=== PATIENT | male | born 1955 | race African-American/Black ===

== ENCOUNTER 2023-04-10 10:27 | Emergency (ER) | payer OTHER ==
[2023-04-10 10:54] LABS: Absolute Lymphocytes (CBC) 3.5 K/uL (0.7-4.9); Hematocrit 38.8 % (39.6-49.0); Lymphocytes % 38.1 % (15.3-44.8); MCV 76.2 fL (80-100); MPV 7.9 fL (7.6-11.3); Platelets 379 thou/uL (152-406); RBC Red Blood Cell Count 5.09 M/uL (4.33-5.43)
[2023-04-10] MEDS ORDERED: ONDANSETRON 4 MG/2 ML VIAL ONE (11:02)
[2023-04-10] MEDS ORDERED: FAMOTIDINE 20 MG/2 ML VIAL IV ONE (11:02)
[2023-04-10] MEDS ORDERED: NA CHLORIDE 0.9% 1,000 ML ONE (11:02)
[2023-04-10 11:13] LABS: Albumin 3.7 g/dL (3.4-5.0); Bilirubin Total 0.5 mg/dL (0.2-1.0); Potassium 3.8 mEq/L (3.5-5.1); Protein, Total 8.3 g/dL (6.4-8.2); Troponin High Sensitivity 3.1 pg/mL (<58.9)
--- NOTE | 2023-04-10 12:06 | RAD REPORT ---
EXAM DESCRIPTION: CT - Abdomen Pelvis W Contrast - 04/10/2023 11:54 am CLINICAL HISTORY: Abdominal pain COMPARISON: none. TECHNIQUE: Computed axial tomography of the abdomen pelvis was obtained. 100 cc Isovue-300 was admin istered intravenously. Oral contrast was not requested which limits evaluation of bowel and appendix All CT scans are performed using dose optimization technique as appropriate and may include automated exposure control or mA/KV adjustment according to patient size. FINDINGS: The liver, spleen, pancreas, adrenal and kidneys appear unremarkable. There is no evidence of diverticulitis. Fluid within nondilated large and small bowel. Prostate gland mildly enlarged IMPRESSION: Fluid within nondilated large and small bowel may indicate enteritis
[2023-04-10] MEDS ORDERED: CIPROFLOXACIN 400mg IV 400 MG/200 ML BAG IV ONE (12:35)
[2023-04-10] MEDS ORDERED: METRONIDAZOLE 500mg IVPB 500 MG/100 ML BAG IV ONE (12:36)
--- NOTE | 2023-04-10 12:37 | EDPHYS ---
Physician Documentation [facility] Name: Gary Ramirez Age: 68 yrs Sex: Male : 1955 Arrival Date: 04/10/2023 Time: 10:27 Bed 10 Private MD: ED Physician Maggy Cardenas HPI: 04/10 10:37 This 68 yrs old Black Male presents to ER via EMS with complaints of Nausea/Vomiting. sp3 10:37 68-year-old male with history of hypertension, hep C, hyperlipidemia, hepatic disease sp3 presents from the local custodial via EMS for chief complaint epigastric pain coupled with nausea and vomiting. Patient states that symptoms have been going on for the last 2 to 3 days and EMS reports that patient had low blood pressure with systolic in the upper 80s at the present. No reports of tachycardia noted. Patient denies any blood or mucus in his emesis and denies any fever, upper respiratory symptoms, shortness of breath, chest pain, lower abdominal pain, diarrhea, syncope, near syncope, or any other signs or symptoms on ROS at this time.. Historical: - Allergies: 10:30 Fish Containing Products; kc6 - PMHx: 10:30 Hypertensive disorder; hepatitis c; Anemia; hyperlipidemia; hepatic disease; kc6 - PSHx: 10:30 None; kc6 - Immunization history:: Adult Immunizations up to date. - Social history:: Smoking status: Patient denies any tobacco usage or history of. ROS: 10:38 Constitutional: Negative for fever, chills, and weight loss, Eyes: Negative for injury, sp3 pain, redness, and discharge, ENT: Negative for injury, pain, and discharge, Neck: Negative for injury, pain, and swelling, Cardiovascular: Negative for chest pain, palpitations, and edema, Respiratory: Negative for shortness of breath, cough, wheezing, and pleuritic chest pain, Back: Negative for injury and pain, MS/Extremity: Negative for injury and deformity, Skin: Negative for injury, rash, and discoloration, Neuro: Negative for headache, weakness, numbness, tingling, and seizure, Psych: Negative for depression, anxiety, suicide ideation, homicidal ideation, and hallucinations, Allergy/Immunology: Negative for hives, rash, and allergies, Endocrine: Negative for neck swelling, polydipsia, polyuria, polyphagia, and marked weight changes, Hematologic/Lymphatic: Negative for swollen nodes, abnormal bleeding, and unusual bruising, 10:38 All other systems are negative, Exam: 10:38 Constitutional: This is a well developed, well nourished patient who is awake, alert, sp3 and in no acute distress. Head/Face: Normocephalic, atraumatic. Eyes: Pupils equal round and reactive to light, extra-ocular motions intact. Lids and lashes normal. Conjunctiva and sclera are non-icteric and not injected. Cornea within normal limits. Periorbital areas with no swelling, redness, or edema. ENT: Nares patent. No nasal discharge, no septal abnormalities noted. External auditory canals are clear. Oropharynx with no redness, swelling, or masses, exudates, or evidence of obstruction, uvula midline. Mucous membranes moist. Neck: Trachea midline, no thyromegaly or masses palpated, and no cervical lymphadenopathy. Supple, full range of motion without nuchal rigidity, or vertebral point tenderness. No Meningismus. Chest/axilla: Normal chest wall appearance and motion. Nontender with no deformity. No lesions are appreciated. Cardiovascular: Regular rate and rhythm with a normal S1 and S2. No gallops, murmurs, or rubs. Normal PMI, no JVD. No pulse deficits. Respiratory: Lungs have equal breath sounds bilaterally, clear to auscultation and percussion. No rales, rhonchi or wheezes noted. No increased work of breathing, no retractions or nasal flaring. Back: No spinal tenderness. No costovertebral tenderness. Full range of motion. Skin: Warm, dry with normal turgor. Normal color with no rashes, no lesions, and no evidence of cellulitis. MS/ Extremity: Pulses equal, no cyanosis. Neurovascular intact. Full, normal range of motion. Neuro: Awake and alert, GCS 15, oriented to person, place, time, and situation. Cranial nerves II-XII grossly intact. Motor strength 5/5 in all extremities. Sensory grossly intact. Cerebellar exam normal. Normal gait. Psych: Awake, alert, with orientation to person, place and time. Behavior, mood, and affect are within normal limits. 10:38 Abdomen/GI: Mild epigastric tenderness noted without peritoneal signs, rebound or guarding. Nonsurgical abdomen noted., 11:03 ECG was reviewed by the Attending Physician. EKG demonstrates normal sinus rhythm at 60 sp3 bpm with a first-degree AV block with a WI interval of 202 ms normal axis, normal QRS, high voltage nonspecific diffuse ST/T changes without evidence of acute ischemia. Vital Signs: 10:28 BP 108 / 78; Pulse 61; Resp 16 S; Temp 98.4(O); Pulse Ox 99% on R/A; Weight 58.51 kg kc6 (R); Height 6 ft. 1 in. (R); 12:12 BP 100 / 70; Pulse 58; Resp 16 S; Pulse Ox 100% on R/A; kc6 13:30 BP 118 / 75; Pulse 60; Resp 17; Pulse Ox 100% on R/A; me1 10:28 Body Mass Index 17.02 (58.51 kg, 185.42 cm) kc6 MDM: 10:33 Patient medically screened. sp3 10:39 Data reviewed: vital signs, nurses notes, EMS record, lab test result(s), radiologic sp3 studies. ED course: 68-year-old male with PMH above now presents with epigastric pain, vomiting and nausea. Differential diagnosis includes gastritis, biliary pathology, pancreatitis, among others. Low suspicion for acute coronary syndrome, pulmonary Balmorhea, aortic pathology including dissection and aneurysm. Will obtain CT scan of the abdomen and pelvis, laboratory values, EKG, and administer Zofran and IV fluids as needed.. 12:35 ED course: CT scan demonstrates infectious etiology without any acute surgical sp3 pathology. Patient is improved with medications given. We will treat with Cipro and Flagyl IV 1 dose prior to discharge and discharge patient home on oral meds.. 04/10 10:34 Order name: CBC with Diff; Complete Time: 12:12 sp3 04/10 10:34 Order name: CMP; Complete Time: 12:12 sp3 04/10 10:34 Order name: Lipase; Complete Time: 12:12 sp3 04/10 10:34 Order name: Troponin High Sensitivity; Complete Time: 12:12 sp3 04/10 10:34 Order name: CT Abd/Pelvis - IV Contrast Only; Complete Time: 12:12 sp3 04/10 10:34 Order name: EKG; Complete Time: 10:34 sp3 04/10 10:34 Order name: IV Saline Lock; Complete Time: 10:45 sp3 04/10 10:34 Order name: Labs collected and sent; Complete Time: 10:45 sp3 04/10 10:34 Order name: EKG - Nurse/Tech; Complete Time: 10:58 sp3 Administered Medications: 10:58 Drug: NS 0.9% IV 1000 ml IV at 1 bolus Per protocol; 1000 mL bolus Route: IV; Rate: 1 kc6 bolus; Site: right forearm; 13:19 Follow up: IV Status: Completed infusion me1 10:58 Drug: Famotidine IVP 20 mg IVP once; dilute with 10 mL 0.9% NaCl; give over 2 minutes kc6 Route: IVP; Site: right forearm; 13:19 Follow up: Response: No adverse reaction; Pain is decreased me1 10:58 Drug: Ondansetron IVP 4 mg IVP once; over 2 minutes Route: IVP; Site: right forearm; kc6 13:19 Follow up: Response: No adverse reaction; Nausea is decreased me1 12:31 Drug: Ciprofloxacin IVPB 400 mg 200 ml IVPB once over 60 mins Volume: 200 ml; Route: kc6 IVPB; Infused Over: 60 mins; Site: right forearm; 13:19 Follow up: Response: No adverse reaction; IV Status: Completed infusion me1 12:31 Drug: metroNIDAZOLE IVPB 500 mg 100 ml IVPB at 200 ml/hr once over 30 mins Volume: 100 kc6 ml; Route: IVPB; Rate: 200 ml/hr; Infused Over: 30 mins; Site: right forearm; 13:20 Follow up: Response: No adverse reaction; IV Status: Completed infusion me1 Disposition Summary: 04/10/23 12:36 Discharge Ordered Notes: Location: Home sp3 Condition: Stable sp3 Diagnosis - Infectious gastroenteritis and colitis, unspecified sp3 Followup: sp3 - With: Private Physician - When: Upon discharge from the Emergency Department - Reason: Continuance of care Discharge Instructions: - Discharge Summary Sheet sp3 - Salmonella Gastroenteritis, Adult sp3 Forms: - Medication Reconciliation Form sp3 - Thank You Letter sp3 - Antibiotic Education sp3 - Prescription Opioid Use sp3 - Patient Portal Instructions sp3 - Leadership Thank You Letter sp3 Prescriptions: - Cipro 500 mg Oral tablet - take 1 tablet ORAL route every 12 hours for 7 days; 14 tablet; Refills: 0, sp3 Product Selection Permitted - Flagyl 500 mg Oral tablet - take 1 tablet ORAL route every 8 hours for 7 days; 21 tablet; Refills: 0, sp3 Product Selection Permitted Signatures: Dispatcher [employer] Maggy Wagner MD MD sp3 Celia Easton RN RN kc6 Jazzmine Martinez RN me1 Corrections: (The following items were deleted from the chart) 10:31 10:30 Allergies: No Known Allergies; [facility] kc6
--- NOTE | 2023-04-10 12:37 | ER ---
Nurse's Notes [facility] Name: Gary Ramirez Age: 68 yrs Sex: Male : 1955 Arrival Date: 04/10/2023 Time: 10:27 Bed 10 Private MD: Diagnosis: Infectious gastroenteritis and colitis, unspecified Presentation: 04/10 10:28 Chief complaint: EMS states: pt is from [facility], has been reporting n/v and kc6 hypotension x2 days. denies diarrhea or abd pain. pt reports losing 9lbs in the past week. Coronavirus screen: At this time, the client does not indicate any symptoms associated with coronavirus-19. Ebola Screen: No symptoms or risks identified at this time. Initial Sepsis Screen: Does the patient meet any 2 criteria? No. Patient's initial sepsis screen is negative. Does the patient have a suspected source of infection? No. Patient's initial sepsis screen is negative. Risk Assessment: Do you want to hurt yourself or someone else? Patient reports no desire to harm self or others. Onset of symptoms was April 10, 2023. 10:28 Method Of Arrival: EMS: [facility] kc6 10:28 Acuity: YOANDY 3 kc6 Triage Assessment: 10:30 General: Appears in no apparent distress. comfortable, Behavior is calm, cooperative, kc6 appropriate for age, quiet. Pain: Denies pain. EENT: No signs and/or symptoms were reported regarding the EENT system. Neuro: Level of Consciousness is awake, alert, obeys commands, Oriented to person, place, time, situation, Appropriate for age. Cardiovascular: Capillary refill < 3 seconds. Respiratory: Airway is patent Trachea midline Respiratory effort is even, unlabored, Respiratory pattern is regular, symmetrical. GI: Abdomen is flat, non-distended, Bowel sounds present X 4 quads. Abd is soft and non tender X 4 quads. Reports nausea, vomiting, Patient currently denies abdominal pain, diarrhea. : No signs and/or symptoms were reported regarding the genitourinary system. Derm: No signs and/or symptoms reported regarding the dermatologic system. Skin is intact, is healthy with good turgor, Skin is pink, warm \T\ dry. Musculoskeletal: No signs and/or symptoms reported regarding the musculoskeletal system. Circulation, motion, and sensation intact. Capillary refill < 3 seconds, Range of motion: intact in all extremities. Historical: - Allergies: 10:30 Fish Containing Products; 6 - PMHx: 10:30 Hypertensive disorder; hepatitis c; Anemia; hyperlipidemia; hepatic disease; 6 - PSHx: 10:30 None; kc6 - Immunization history:: Adult Immunizations up to date. - Social history:: Smoking status: Patient denies any tobacco usage or history of. Screenin:31 [facility] ED Fall Risk Assessment (Adult) History of falling in the last 3 months, kc6 including since admission No falls in past 3 months (0 pts) Confusion or Disorientation No (0 pts) Intoxicated or Sedated No (0 pts) Impaired Gait No (0 pts) Mobility Assist Device Used No (0 pt) Altered Elimination No (0 pt) Score/Fall Risk Level 0 - 2 = Low Risk. Abuse screen: Denies threats or abuse. Denies injuries from another. Nutritional screening: No deficits noted. Tuberculosis screening: No symptoms or risk factors identified. Assessment: 10:32 Reassessment: please see triage assessment. [facility] 11:32 Reassessment: Patient appears in no apparent distress at this time. No changes from [facility] previously documented assessment. Patient and/or family updated on plan of care and expected duration. Pain level reassessed. Patient is alert, oriented x 3, equal unlabored respirations, skin warm/dry/pink. 12:12 Reassessment: Patient appears in no apparent distress at this time. No changes from [facility] previously documented assessment. Patient and/or family updated on plan of care and expected duration. Pain level reassessed. Patient is alert, oriented x 3, equal unlabored respirations, skin warm/dry/pink. Vital Signs: 10:28 BP 108 / 78; Pulse 61; Resp 16 S; Temp 98.4(O); Pulse Ox 99% on R/A; Weight 58.51 kg kc (R); Height 6 ft. 1 in. (R); 12:12 BP 100 / 70; Pulse 58; Resp 16 S; Pulse Ox 100% on R/A; kc6 13:30 BP 118 / 75; Pulse 60; Resp 17; Pulse Ox 100% on R/A; me1 10:28 Body Mass Index 17.02 (58.51 kg, 185.42 cm) [facility] ED Course: 10:28 Patient arrived in ED. kc6 10:30 Triage completed. kc6 10:30 Maggy Cardenas MD is Attending Physician. sp3 10:30 Arm band placed on. kc6 10:32 Patient has correct armband on for positive identification. Bed in low position. Call kc6 light in reach. Side rails up X2. Security at bedside. Client placed on continuous cardiac and pulse oximetry monitoring. NIBP monitoring applied. 10:45 Celia Easton, CARINA is Primary Nurse. kc6 10:45 Inserted saline lock: 24 gauge in right forearm, using aseptic technique. Blood kc6 collected. Patient maintains SpO2 saturation greater than 95% on room air. 10:57 Missed attempt(s): 22 gauge in right antecubital area. Bleeding controlled, band aid ph applied, catheter tip intact. 11:56 CT Abd/Pelvis - IV Contrast Only In Process Unspecified. EDMS 13:20 Provided Education on: POC. Verbalized understanding.. me1 13:20 No provider procedures requiring assistance completed. me1 13:36 IV discontinued, intact, bleeding controlled, No redness/swelling at site. Pressure me1 dressing applied. Administered Medications: 10:58 Drug: NS 0.9% IV 1000 ml IV at 1 bolus Per protocol; 1000 mL bolus Route: IV; Rate: 1 kc6 bolus; Site: right forearm; 13:19 Follow up: IV Status: Completed infusion me1 10:58 Drug: Famotidine IVP 20 mg IVP once; dilute with 10 mL 0.9% NaCl; give over 2 minutes kc6 Route: IVP; Site: right forearm; 13:19 Follow up: Response: No adverse reaction; Pain is decreased me1 10:58 Drug: Ondansetron IVP 4 mg IVP once; over 2 minutes Route: IVP; Site: right forearm; kc6 13:19 Follow up: Response: No adverse reaction; Nausea is decreased me1 12:31 Drug: Ciprofloxacin IVPB 400 mg 200 ml IVPB once over 60 mins Volume: 200 ml; Route: kc6 IVPB; Infused Over: 60 mins; Site: right forearm; 13:19 Follow up: Response: No adverse reaction; IV Status: Completed infusion me1 12:31 Drug: metroNIDAZOLE IVPB 500 mg 100 ml IVPB at 200 ml/hr once over 30 mins Volume: 100 kc6 ml; Route: IVPB; Rate: 200 ml/hr; Infused Over: 30 mins; Site: right forearm; 13:20 Follow up: Response: No adverse reaction; IV Status: Completed infusion me1 Medication: 13:20 VIS not applicable for this client. me1 Outcome: 12:36 Discharge ordered by . enrique 13:36 Discharged to [facility] Unit me1 13:36 Condition: stable 13:36 Discharge instructions given to patient, [employer] guards Instructed on discharge instructions, follow up and referral plans. medication usage, Demonstrated understanding of instructions, follow-up care, medications, Prescriptions given X 2, 13:39 Patient left the ED. me1 Signatures: Dispatcher [employer] EDJolynn Cordoba RN RN Maggy Cardenas MD MD sp3 Celia Easton RN RN kc6 Jazzmine Martinez RN RN me1 Corrections: (The following items were deleted from the chart) 10:31 10:30 Allergies: No Known Allergies; kc6 kc6
[2023-04-10 13:43] VITALS: TEMP 98.4
[2023-04-10 13:45] VITALS: O2SAT 100
[2023-04-10 13:46] VITALS: BP 118/75
--- NOTE | 2023-04-12 14:15 | EKG ---
Test Date: 2023-04-10 Test Time: 11:00:11 Paper Inspector: KINA MEASUREMENT RESULTS: Intervals: Rate: 60 IL: 202 QRSD: 76 QT: 394 QTc: 394 [place]: P: 70 IL: 202 QRS: 67 T: -4 INTERPRETIVE STATEMENTS: Normal sinus rhythm Abnormal QRS-T angle, consider primary T wave abnormality Abnormal ECG No previous ECG available for comparison Electronically Signed On 04-12-23 14:08:51 BROTH MIXER by Riley Stevens
== END 2023-04-10 13:39 | disposition home or self-care (01) ==
LOC: ER 10:27
DX: A09 Infectious gastroenteritis and colitis, unspecified (principal); I10 Essential (primary) hypertension; Z91.013 Allergy to seafood
CPT/HCPCS: 96365; 96361; 96368; 93005; 85025; 36415; 84484; 83690; 80053; 74177; 96375; 99285; Q9967; J2405; J0744; J7030

== ENCOUNTER → 2023-06-09 | Emergency (ER) | payer OTHER ==
[2023-06-09 15:16] LABS: Absolute Lymphocytes (CBC) 1.7 K/uL (0.7-4.9); Hematocrit 33.7 % (39.6-49.0); Lymphocytes % 26.1 % (15.3-44.8); MCV 78.3 fL (80-100); MPV 8.6 fL (7.6-11.3); Platelets 227 thou/uL (152-406); RBC Red Blood Cell Count 4.31 M/uL (4.33-5.43)
--- NOTE | 2023-06-09 15:23 | RAD REPORT ---
EXAM DESCRIPTION: Ramiro Single View06/09/2023 3:17 pm CLINICAL HISTORY: right wrist weaknes COMPARISON: No comparisons TECHNIQUE: Portable AP view of the chest. FINDINGS: The lungs are clear. Diffuse hyperinflation. No pneumothorax or effusion. The cardiomedia stinal contours are unremarkable. IMPRESSION: No acute cardiopulmonary process.
[2023-06-09 15:26] LABS: Protime INR 1.21
--- NOTE | 2023-06-09 15:30 | RAD REPORT ---
EXAM DESCRIPTION: CT - Head Brain Wo Cont - 06/09/2023 2:57 pm CLINICAL HISTORY: right wrist weaknes COMPARISON: No comparisons TECHNIQUE: Noncontrast head CT images were obtained without IV contrast. Multiplanar reformats were generated and reviewed. All CT scans are performed using dose optimization technique as appropriate and may include automated exposure control or mA/KV adjustment according to patient size. FINDINGS: No intracranial hemorrhage, mass, or edema. Midline structures are unremarkable. Normal ventricular caliber for age. Ramirez-white matter differentiation is preserved, without evidence of acute infarct. No abnormal extra- axial fluid collections. Mastoid air cells and visualized portions of the paranasal sinuses are clear. No acute bony findings. IMPRESSION: No evidence of an acute intracranial process.
[2023-06-09 15:35] LABS: Potassium 3.8 mEq/L (3.5-5.1)
--- NOTE | 2023-06-09 15:58 | EDPHYS ---
Physician Documentation [facility] Name: Gary Ramirez Age: 68 yrs Sex: Male : 1955 Arrival Date: 06/09/2023 Time: 14:01 Bed 17 Private MD: ED Physician Garrett Pablo HPI: 06/09 15:57 This 68 yrs old Black Male presents to ER via [employer] with complaints of wrist ms3 weakness. 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 Patient denies weakness of right upper extremity or forearm. Patient denies numbness to hand. Patient endorses throbbing/tingling of his hand. Patient denies shortness of breath.. Historical: - Allergies: 14:07 Fish Containing Products; kc6 - PMHx: 14:07 Anemia; hepatic disease; Hepatitis C; Hyperlipidemia; Hypertensive disorder; bells kc6 palsy; - PSHx: 14:07 None; kc6 - Immunization history:: Adult Immunizations up to date. - Social history:: Smoking status: Patient denies any tobacco usage or history of. ROS: 15:57 Constitutional: Negative for fever, and chills. Neck: Negative for injury, pain, and ms3 swelling, Cardiovascular: Negative for chest pain, and palpitations. Respiratory: Negative for shortness of breath, cough, wheezing, and pleuritic chest pain, Abdomen/GI: Negative for abdominal pain, nausea, vomiting, diarrhea, and constipation, MS/Extremity: Negative for injury and deformity, Skin: Negative for injury, rash, and discoloration, 15:57 Neuro: Positive for Wrist weakness, Exam: 15:57 ECG was reviewed by the Attending Physician. ms3 15:57 Constitutional: This is a well developed, well nourished patient who is awake, alert, ms3 and in no acute distress. Head/Face: Normocephalic, atraumatic. Neck: Trachea midline, no cervical lymphadenopathy. Supple, full range of motion without nuchal rigidity, or vertebral point tenderness. No Meningismus. Chest/axilla: Normal chest wall appearance and motion. Nontender with no deformity. Cardiovascular: Regular rate and rhythm with a normal S1 and S2. No gallops, murmurs, or rubs. Normal PMI, no JVD. No pulse deficits. Respiratory: Lungs have equal breath sounds bilaterally, clear to auscultation and percussion. No rales, rhonchi or wheezes noted. No increased work of breathing, no retractions or nasal flaring. Abdomen/GI: Soft, non-tender, with normal bowel sounds. No distension or tympany. No guarding or rebound. No evidence of tenderness throughout. Skin: Warm, dry with normal turgor. Normal color with no rashes, no lesions, and no evidence of cellulitis. 15:57 Musculoskeletal/extremity: Extremities: noted in the right wrist: There is no evidence of swelling, tenderness, weakness of wrist extension and right hand pronation, 15:57 Neuro: weakness of extension of right wrist, weakness on pronation of right hand, Vital Signs: 14:02 BP 156 / 80; Pulse 76; Resp 16 S; Pulse Ox 100% on R/A; Weight 62.6 kg (R); Height 6 kc6 ft. 0 in. (R); 15:46 BP 154 / 83; Pulse 60; Resp 16 S; Pulse Ox 100% on R/A; kc6 14:02 Body Mass Index 18.72 (62.60 kg, 182.88 cm) kc6 MDM: 14:47 Patient medically screened. ms3 15:57 Differential diagnosis: Nerve palsy vs peripheral neuropathy. Data reviewed: vital ms3 signs, nurses notes, lab test result(s), EKG, radiologic studies, and as a result, I will discharge patient. Independent interpretation of the following test(s) in the Emergency Department EKG: See my EKG interpretation above. Care significantly affected by the following chronic conditions: Hypertension. Counseling: I had a detailed discussion with the patient and/or guardian regarding the historical points, exam findings, and any diagnostic results supporting the discharge/admit diagnosis, lab results, radiology results, the need for outpatient follow up, to return to the emergency department if symptoms worsen or persist or if there are any questions or concerns that arise at home. Special discussion: I discussed with the patient/guardian in detail that at this point there is no indication for admission to the hospital. It is understood, however, that if the symptoms persist or worsen the patient needs to return immediately for re-evaluation. ED course: Discussed physical exam findings, labs, imaging with patient. Patient to follow-up with neurology in 2 to 3 days. Patient understands agrees with plan. All questions were answered. Return precautions discussed include worsening symptoms, or any other concerns. On reevaluation patient's right hand sensation intact, capillary refill less than 2 seconds. Wrist extension weak.. 06/09 14:47 Order name: Basic Metabolic Panel; Complete Time: 15:45 ms3 06/09 14:47 Order name: CBC with Diff; Complete Time: 15:33 ms3 06/09 14:47 Order name: High Sensitivity Troponin; Complete Time: 15:45 ms3 06/09 14:47 Order name: Protime (+inr); Complete Time: 15:33 ms3 06/09 14:47 Order name: Ptt, Activated; Complete Time: 15:33 ms3 06/09 14:46 Order name: CT Head Brain wo Cont; Complete Time: 15:33 ms3 06/09 14:47 Order name: Stroke CXR 1 View; Complete Time: 15:33 ms3 06/09 14:47 Order name: EKG; Complete Time: 14:47 ms3 06/09 14:47 Order name: Accucheck; Complete Time: 14:48 ms3 06/09 14:47 Order name: Cardiac monitoring; Complete Time: 14:48 ms3 06/09 14:47 Order name: EKG - Nurse/Tech; Complete Time: 14:48 ms3 06/09 14:47 Order name: IV Saline Lock; Complete Time: 14:48 ms3 06/09 14:47 Order name: Labs collected and sent; Complete Time: 14:48 ms3 06/09 14:47 Order name: NPO; Complete Time: 14:48 ms3 06/09 14:47 Order name: O2 Per Protocol; Complete Time: 14:48 ms3 06/09 14:47 Order name: O2 Sat Monitoring; Complete Time: 14:48 ms3 06/09 14:47 Order name: Stroke Swallow Screen; Complete Time: 14:48 ms3 EC:57 Rate is 68 beats/min. Rhythm is regular. QRS Flanagan is Normal. QRS interval is normal. ms3 Clinical impression: Normal ECG. Interpreted by me. Reviewed by me. Administered Medications: No medications were administered Disposition Summary: 06/09/23 15:57 Discharge Ordered Notes: Location: Home ms3 Condition: Stable ms3 Diagnosis - Wrist drop, right wrist ms3 Followup: ms3 - With: Tomasz Ashton MD - When: 1 - 2 days - Reason: Recheck today's complaints Discharge Instructions: - Discharge Summary Sheet ms3 - Radial Nerve Palsy ms3 - Pronator Syndrome Rehab-Sports[facility] ms3 Forms: - Medication Reconciliation Form ms3 - Thank You Letter ms3 - Antibiotic Education ms3 - Prescription Opioid Use ms3 - Patient Portal Instructions ms3 - Leadership Thank You Letter ms3 Signatures: Dispatcher [employer] Garrett Melo DO DO ms3 Celia Easton RN RN kc6
--- NOTE | 2023-06-09 15:58 | ER ---
Nurse's Notes [facility] Name: Gary Ramirez Age: 68 yrs Sex: Male : 1955 Arrival Date: 06/09/2023 Time: 14:01 Bed 17 Private MD: Diagnosis: Wrist drop, right wrist Presentation: 06/09 14:02 Chief complaint: Patient states: right arm numbness that began this morning at 0600. pt kc6 reports slight headache as well. hx of bells palsy. Coronavirus screen: At this time, the client does not indicate any symptoms associated with coronavirus-19. Ebola Screen: No symptoms or risks identified at this time. Initial Sepsis Screen: Does the patient meet any 2 criteria? No. Patient's initial sepsis screen is negative. Does the patient have a suspected source of infection? No. Patient's initial sepsis screen is negative. Risk Assessment: Do you want to hurt yourself or someone else? Patient reports no desire to harm self or others. Onset of symptoms was June 09, 2023. 14:02 Method Of Arrival: [employer] Enforcement: [place] [employer] kc6 14:02 Acuity: YOANDY 3 kc6 Triage Assessment: 14:07 General: Appears in no apparent distress. comfortable, well groomed, well developed, kc6 Behavior is calm, cooperative, appropriate for age. EENT: No signs and/or symptoms were reported regarding the EENT system. Neuro: Level of Consciousness is awake, alert, obeys commands, Oriented to person, place, time, situation, Appropriate for age Software Applications Specialist are equal bilaterally Moves all extremities. Full function Gait is steady, Speech is normal, Facial symmetry appears normal, Pupils are PERRLA, Numbness in right arm Reports headache. Cardiovascular: Capillary refill < 3 seconds. Respiratory: Airway is patent Trachea midline Respiratory effort is even, unlabored, Respiratory pattern is regular, symmetrical. GI: No signs and/or symptoms were reported involving the gastrointestinal system. : No signs and/or symptoms were reported regarding the genitourinary system. Derm: No signs and/or symptoms reported regarding the dermatologic system. Skin is intact, is healthy with good turgor, Skin is pink, warm \T\ dry. Musculoskeletal: No signs and/or symptoms reported regarding the musculoskeletal system. Circulation, motion, and sensation intact. Capillary refill < 3 seconds, Range of motion: intact in all extremities. Historical: - Allergies: 14:07 Fish Containing Products; kc6 - PMHx: 14:07 Anemia; hepatic disease; Hepatitis C; Hyperlipidemia; Hypertensive disorder; bells kc6 palsy; - PSHx: 14:07 None; kc6 - Immunization history:: Adult Immunizations up to date. - Social history:: Smoking status: Patient denies any tobacco usage or history of. Screenin:09 [facility] ED Fall Risk Assessment (Adult) History of falling in the last 3 months, kc6 including since admission No falls in past 3 months (0 pts) Confusion or Disorientation No (0 pts) Intoxicated or Sedated No (0 pts) Impaired Gait No (0 pts) Mobility Assist Device Used No (0 pt) Altered Elimination No (0 pt) Score/Fall Risk Level 0 - 2 = Low Risk. Abuse screen: Denies threats or abuse. Denies injuries from another. Nutritional screening: No deficits noted. Tuberculosis screening: No symptoms or risk factors identified. 14:48 [place] Swallow Protocol Brief Cognitive Screen What is your name? Normal, Where are you [facility] right now? Normal, What year is it? Normal. Oral Mechanism Examination Facial Symmetry: Normal, Motion: Normal, Lip Closure: Normal, Oral Mechanism Result: Normal. 3 oz Water Swallow Challenge: Pt able to drink all water without stopping, coughing, choking or throat clearing: Yes Result: PASS. Assessment: 14:10 Reassessment: please see triage assessment. kc6 15:45 Reassessment: Patient appears in no apparent distress at this time. No changes from [facility] previously documented assessment. Patient and/or family updated on plan of care and expected duration. Pain level reassessed. Patient is alert, oriented x 3, equal unlabored respirations, skin warm/dry/pink. Vital Signs: 14:02 BP 156 / 80; Pulse 76; Resp 16 S; Pulse Ox 100% on R/A; Weight 62.6 kg (R); Height 6 kc6 ft. 0 in. (R); 15:46 BP 154 / 83; Pulse 60; Resp 16 S; Pulse Ox 100% on R/A; kc6 14:02 Body Mass Index 18.72 (62.60 kg, 182.88 cm) [facility] ED Course: 14:02 Patient arrived in ED. 6 14:07 Triage completed. kc6 14:08 Garrett Pablo DO is Attending Physician. ms3 14:09 Patient maintains SpO2 saturation greater than 95% on room air. kc6 14:09 Patient has correct armband on for positive identification. Bed in low position. Call kc6 light in reach. Side rails up X2. Security at bedside. Client placed on continuous cardiac and pulse oximetry monitoring. NIBP monitoring applied. 14:09 Arm band placed on. kc6 14:38 Celia Easton, RN is Primary Nurse. kc6 14:39 Inserted saline lock: 20 gauge in right antecubital area, using aseptic technique. kc6 Blood collected. 14:57 CT Head Brain wo Cont In Process Unspecified. EDMS 15:18 Stroke CXR 1 View In Process Unspecified. EDMS 15:57 Tomasz Ashton MD is Referral Physician. ms3 16:08 No provider procedures requiring assistance completed. IV discontinued, intact, kc6 bleeding controlled, No redness/swelling at site. Pressure dressing applied. Administered Medications: No medications were administered Medication: 16:09 VIS not applicable for this client. kc6 Outcome: 15:57 Discharge ordered by . ms3 16:08 Discharged to to [facility] with security, ambulatory kc6 16:08 Condition: good 16:08 Discharge instructions given to patient, Instructed on discharge instructions, follow up and referral plans. Demonstrated understanding of instructions, follow-up care, 16:10 Patient left the ED. kc6 Signatures: Dispatcher [employer] EDMS Garrett Pablo DO DO ms3 Celia Easton, RN RN kc6
[2023-06-09 16:32] VITALS: BP 154/83; O2SAT 100
--- NOTE | 2023-06-11 17:38 | EKG ---
Test Date: 2023-06-09 Test Time: 14:46:18 [facility]ilities Specialist: KINA MEASUREMENT RESULTS: Intervals: Rate: 68 MI: 218 QRSD: 68 QT: 392 QTc: 416 Bennett: P: 72 MI: 218 QRS: 34 T: 27 INTERPRETIVE STATEMENTS: Sinus rhythm with 1st degree AV block Otherwise normal ECG Compared to ECG 04/10/2023 11:00:11 First degree AV block now present T-wave abnormality no longer present Electronically Signed On 06-11-23 17:34:42 MOLDING ENGINEER by Riley Stevens
== END ==
LOC: ER 14:01
DX: M21.331 Wrist drop, right wrist (principal); I10 Essential (primary) hypertension; Z91.013 Allergy to seafood
CPT/HCPCS: 36415; 70450; 71045; 80048; 84484; 85025; 85610; 85730; 93005; 99285